=== PATIENT | female | born 1965 | race Caucasian/White ===

== ENCOUNTER 2017-01-20 13:58 | Day surgery (SDC) | payer OTHER ==
[~2017-01-20] VITALS: Ht 152.4 cm; Wt 82.8 kg
[~2017-01-20 13:58] MED LIST: NAPR-688; TIZA4CAP; TRAM-40; VICES
[2017-01-20] MEDS ORDERED: vitamin d (14:27)
[2017-01-20] MEDS ORDERED: gabapentin (14:27)
[2017-01-20] MEDS ORDERED: diclofen (14:27)
[2017-01-20] MEDS ORDERED: metoprolol (14:27)
[2017-01-20 14:29] VITALS: Ht 152.4 cm; Wt 82.8 kg
[2017-01-20] MEDS ORDERED: PROPOFOL 20 ML ONE (14:42)
[2017-01-20] MEDS ORDERED: FENTAnyl 50 MCG/ML VIAL ONE ×2 (14:42→16:45)
[2017-01-20 14:46] VITALS: BP 113/74; PULSE 88; RESP 18
--- NOTE | 2017-01-20 15:28 | OPPN ---
Date/Time of Note Date/Time of Note DATE: 01/20/17 TIME: 15:23 Proc Note GI Procedure Date 01/20/17 Pre-procedure Diagnosis * Colorectal cancer screening Post-procedure Diagnosis Assessment: * Mild sigmoid diverticulosis. * Moderate-sized internal hemorrhoids. * Otherwise normal colonoscopy to cecum. Plan: * High-fiber diet * Annual Hemoccult testing * Screening colonoscopy in 10 years Surgeon ALBINA SIMS MD Ultrasonic Tester none Anesthesia Type: MAC Anesthesiologist: VANESSA GRANDA MD Tourniquet Time none EBL none Transfusion required none Grafts/Implants none Tubes/Drains none Complication(s) none Pt Condition post procedure: stable Disposition: home Indications: screening/surveillance Procedure Description After informed consent, with the patient/relatives understanding the procedure, its indications and potential risks and complications, including but not limited to: Allergic reaction, bleeding, perforation, infection, and after all pertinent questions were answered to the patient's satisfaction, the patient/ relatives signed the witnessed informed consent. Following this, premedication was administered slowly IV push under careful cardiovascular and respiratory monitoring with pulse OXIMETRY, automatic blood pressure, and regulatory affairs director. Once the sedative effect was achieved, the patient was placed in the left lateral decubitus position, digital rectal examination was performed. The colonoscope was then introduced and advanced under visual control throughout all segments of the colon including: the rectum, sigmoid, descending colon, splenic flexure, transverse colon, hepatic flexure, ascending colon and finally reaching the cecum which was clearly identified by transillumination, finger indentation and the ileocecal valve. Careful examination of the mucosa of the lower gastrointestinal tract both on insertion as well as withdrawal of the instrument disclosed the following findings: PREPARATION QUALITY: [Adequate], RECTAL EXAM: The anorectal area was visualized examined and digital rectal examination performed with the following findings: No evidence of perirectal disease, no masses. COLONIC MUCOSA: The mucosa of all segments of the colon was carefully examined and showed the following findings: There is mild diverticulosis of several colon. Moderate-sized internal hemorrhoids are present. Otherwise the examined mucosa appears within normal limits. There is no evidence of inflammatory changes, polyps or other neoplasms , vascular malformation, or any other abnormality. The instrument was then withdrawn, the patient tolerated the procedure well and was transferred out of the Endoscopy Suite awake and in good condition to continue recovery under observation. Copies To: CC: ALBINA SIMS MD, MORDO MD Jan 20, 2017 15:28
[2017-01-20 15:50] VITALS: BP 139/65; RESP 14
[2017-01-20] MEDS ORDERED: MIDAZOLAM 1 MG/ML 2 ML INJ ONE ×2 (16:45)
== END 2017-01-20 16:55 | disposition home or self-care (01) ==
LOC: GIL 13:58
PROVIDERS: ATTEND Internal Medicine Gastroenterology
DX: Z12.11 Encounter for screening for malignant neoplasm of colon (principal); K64.8 Other hemorrhoids; I10 Essential (primary) hypertension; E78.5 Hyperlipidemia, unspecified
CPT/HCPCS: 45378; 84703; J2250; J3010; Z7610

== ENCOUNTER 2018-10-11 08:21 | Observation (INO) | payer OTHER ==
[~2018-10-11] VITALS: Ht 153.7 cm; Wt 86.5 kg
[2018-10-11] VITALS (21 sets, daily range): BP systolic 109–154; BP diastolic 59–76; PULSE 86–105; RESP 11–20; Ht 153.7 cm; Wt 86.5 kg
[~2018-10-11 08:21] MED LIST changes: -NAPR-688; +SEVOFLURANE 15 MIN ONE; -TIZA4CAP; -TRAM-40; +TRAM50TA; -VICES; +diclofen; +gabapentin; +metoprolol; +vitamin d
[2018-10-11] MEDS ORDERED: ACET1TAB40 PO (12:28)
[2018-10-11] MEDS ORDERED: DIC20 PO (12:30)
[2018-10-11] MEDS ORDERED: OMEP40CA6 PO (12:30)
[2018-10-11] MEDS ORDERED: GABA300C16 PO (12:31)
[2018-10-11] MEDS ORDERED: GABA100C14 PO (12:31)
[2018-10-11] MEDS ORDERED: METO-448 PO (12:32)
[2018-10-11] MEDS ORDERED: CELE200C PO (12:33)
[2018-10-11] MEDS ORDERED: GLUC500T11 PO (12:33)
[2018-10-11] MEDS ORDERED: CALC500T91 PO (12:34)
[2018-10-11] MEDS ORDERED: CITA20TA11 PO (12:35)
[2018-10-11] MEDS ORDERED: NORT10CA2 PO (12:35)
[2018-10-11] MEDS: LACTATED RINGER'S 1,000 ML IV SCH (12:44)
--- NOTE | 2018-10-11 14:01 | PREAC ---
Date/Time of Note Date/Time of Note DATE: 10/11/18 TIME: 14:00 Anesthesia Eval and Record Evaluation Time Pre-Procedure Interview DATE: 10/11/18 TIME: 14:00 Age 53 Sex female NPO: 8 hrs Preoperative diagnosis lumbar stenosis Planned procedure lumbar 4-lumbar 5 minimally invasive lumbar laminectomy microdiscectomy Past Medical History Past Medical History: Includes Cardio: HTN, Dyslipidemia GI: Obesity Surgery & Anesthesia Issues No known issue Meds Anticoagulation: No Beta Faith within 24 hr: Yes Reason Beta Faith not given: Bradycarida, Hypotension Reported Medications Nortriptyline Hcl* (Nortriptyline Hcl*) 10 Mg Capsule, 10 MG PO HS, CAP 10/11/18 Citalopram Hydrobromide* (Celexa*) 20 Mg Tablet, 20 MG PO DAILY, #30 TAB 10/11/18 Calcium Carbonate ([id number]) 500 Mg Tablet, 500 MG PO DAILY, TAB 10/11/18 Celecoxib* (Celebrex*) 200 Mg Capsule, 200 MG PO BID, CAP 10/11/18 Glucosamine Hcl (Glucosamine Hcl) 500 Mg Tablet, 500 MG PO TID, TAB 10/11/18 Metoprolol Tartrate* (Lopressor*) 25 Mg Tab, 25 MG PO BID, #60 TAB 10/11/18 Gabapentin* (Gabapentin*) 300 Mg Capsule, 300 MG PO TID, #90 CAP 10/11/18 Gabapentin* (Gabapentin*) 100 Mg Capsule, 100 MG PO QHS, #90 CAP 10/11/18 Omeprazole* (Omeprazole*) 40 Mg Capsule.dr, 40 MG PO DAILY, #30 CAP 10/11/18 Dicyclomine HCl (Dicyclomine HCl) 20 Mg Tablet, 20 MG PO QID 10/11/18 Acetaminophen with Codeine (Acetaminophen-Cod #3 Tablet) 1 Each Tablet, 1 TAB PO BID PRN for PAIN, #7 TAB 10/11/18 Discontinued Reported Medications [diclofen] No Conflict Check 01/20/17 [gabapentin] No Conflict Check 01/20/17 [vitamin d] No Conflict Check 01/20/17 [metoprolol] No Conflict Check 01/20/17 Tramadol Hcl* (Ultram*) 50 Mg Tablet 10/16/11 Current Medications Lactated Ringer's 1,000 ml @ 30 mls/hr Q24H IV Last administered on 10/11/18at 12:44; Admin Dose 30 MLS/HR; Start 10/11/18 at 12:30 Meds reviewed: Yes Allergies Coded Allergies: No Known Allergies (Verified Allergy, Unknown, 10/11/18) Allergies Reviewed: Yes Labs/Studies Labs Reviewed: Reviewed by anesthesiologist Result Diagram: 10/11/18 1220 10/11/18 1220 Laboratory Tests 10/11/18 12:20 test: Negative Studies: ECG, CXR, Stress test, 2D Echo Pre-procedure Exam Last vitals Vital Signs Date Temp Pulse Resp B/P (MAP) Pulse Ox O2 O2 Flow FiO2 Time Delivery Rate 10/11/18 96.7 86 16 121/76 95 Room Air 12:52 (91) Airway: Adequate mouth opening, Adequate thyromental dist Mallampati: Mallampati II Teeth: Abnormal (upper dentures) Lung: Normal Heart: Normal ASA Physical Status ASA physical status: 2 Emergency: None Planned Anesthetic General/MAC: ETT Planned Pain Management Parenteral pain med Pre-operative Attestations Prior to commencing anesthesia and surgery, the patient was re-evaluated, there was verification of: *The patient's identity *The results of appropriate recent lab work and preoperative vital signs *The above evaluation not changing prior to induction *Anesthetic plan, risk benefits, alternative and complications discussed with patient/family; questions answered; patient/family understands, accepts and wishes to proceed. Block Cuber used EDY ZABALA MD Oct 11, 2018 14:01
[2018-10-11] MEDS ORDERED: GELATIN SIZE 100 SPONGE ONE ×2 (14:14→16:15)
[2018-10-11] MEDS ORDERED: BUPIVACAINE 0.5%/EPI (SDV) 30 ML INJ ONE (14:14)
[2018-10-11] MEDS ORDERED: THROMBIN 5000 UNIT VIAL ONE ×2 (14:14→16:15)
[2018-10-11] MEDS ORDERED: POLYMYXIN/BACITRACIN 1L IRRIG ONE (14:14)
[2018-10-11] MEDS ORDERED: LIDOCAINE 1.5%/EPI MPF (SDV) 30 ML VIAL ONE (14:14)
--- NOTE | 2018-10-11 14:31 | HPN ---
Date/Time of Note Date/Time of Note DATE: 10/11/18 TIME: 14:30 Interval H&P Admission Note Pt. seen H&P reviewed: Systems changes noted below Continued intractable LBP and left LE pain, numbness and weakness. The risks and benefits of the above operation were again explained to the patient and her with the help of bilingual nurse. AKHIL WEAVER MD Oct 11, 2018 14:31
[2018-10-11] MEDS ORDERED: MIDAZOLAM 1 MG/ML 2 ML INJ ONE (14:52)
[2018-10-11] MEDS ORDERED: ROCURONIUM 50 MG INJ ONE (15:00)
[2018-10-11] MEDS ORDERED: SUCCINYLCHOLINE CHLORIDE 100 MG/5 ML SYG IV ONE (15:00)
[2018-10-11] MEDS ORDERED: ONDANSETRON 4 MG INJ ONE (15:00)
[2018-10-11] MEDS ORDERED: DEXAMETHASONE 4 MG/ML 5 ML INJ ONE (15:00)
[2018-10-11] MEDS ORDERED: CEFAZOLIN 1 GM INJ ONE (15:00)
[2018-10-11] MEDS ORDERED: FAMOTIDINE 20 MG INJ ONE (15:00)
[2018-10-11] MEDS ORDERED: LIDOCAINE 2% (SDV) 5 ML INJ ONE (15:00)
[2018-10-11] MEDS ORDERED: PROPOFOL 20 ML ONE (15:00)
[2018-10-11] MEDS ORDERED: METHYLPREDNISOLONE ACET 80 MG/ML 1 ML ONE (16:54)
[2018-10-11] MEDS ORDERED: GLYCOPYRROLATE 0.4 MG INJ ONE (17:00)
[2018-10-11] MEDS ORDERED: NEOSTIGMINE 3 MG/3 ML SYRINGE ONE (17:00)
--- NOTE | 2018-10-11 17:24 | SIPON ---
Date/Time of Note Date/Time of Note DATE: 10/11/18 TIME: 17:21 Operative Report Preoperative Diagnosis Right L4-5 lateral recess stenosis Right L4-5 facet hypertrophy Right L4-5 HNP Postoperative Diagnosis Right L4-5 lateral recess stenosis Right L4-5 facet hypertrophy Right L4-5 HNP Operation/Procedure Performed MIS right L4 hemilaminectomy, right L4-5 medial facetectomy, foraminotomy, microdiscectomy Surgeon see signature line data entry assistant None Anesthesia: general Estimated blood loss: 10 - 50 ml's (25cc) Transfusion Required none Specimen None Grafts/Implants none Complications none AKHIL WEAVER MD Oct 11, 2018 17:24
[2018-10-11] MEDS ORDERED: ONDANSETRON 4 MG INJ IV PRN ×3 (17:30→18:30)
[2018-10-11] MEDS: CITALOPRAM 20 MG TAB PO SCH (17:30)
[2018-10-11] MEDS ORDERED: BISACODYL 10 MG SUPP PR PRN (17:30)
[2018-10-11] MEDS ORDERED: NALOXONE (0.4 MG/ML) INJ IV PRN (17:30)
[2018-10-11] MEDS ORDERED: ACETAMINOPHEN/CODEINE #3 TAB PO PRN (17:30)
--- NOTE | 2018-10-11 17:55 | PAC ---
Date/Time of Note Date/Time of Note DATE: 10/11/18 TIME: 17:54 Post-Anesthesia Notes Post-Anesthesia Note Last documented vital signs Vital Signs Date Temp Pulse Resp B/P (MAP) Pulse Ox O2 O2 Flow FiO2 Time Delivery Rate 10/11/18 96.7 86 16 121/76 95 Room Air 12:52 (91) Activity: WNL Respiratory function: WNL Cardiovascular function: WNL Mental status: Baseline Pain reasonably controlled: Yes Hydration appropriate: Yes Nausea/Vomiting absent: Yes Comments BP:120/68 HR: 98 SaO2: 97% RR: 15 T: 98.9 EDY ZABALA MD Oct 11, 2018 17:55
[2018-10-11] MEDS ORDERED: HYDROmorphONE 1 MG/5 ML IV SYRINGE IV ONE (18:20)
[2018-10-11] MEDS: CEFAZOLIN 1 GM/50 ML (PMX) 50 ML IVPB SCH (18:21)
[2018-10-11] MEDS ORDERED: FENTAnyl 50 MCG/ML VIAL IV PRN ×3 (18:30)
[2018-10-11] MEDS ORDERED: HYDROmorphONE 1 MG/5 ML IV SYRINGE IV PRN ×6 (18:30)
[2018-10-11] MEDS ORDERED: MEPERIDINE 25 MG INJ IV PRN (18:30)
[2018-10-11] MEDS ORDERED: DIPHENHYDRAMINE 50 MG INJ IV PRN (18:30)
[2018-10-11] MEDS ORDERED: PROCHLORPERAZINE 10 MG INJ IV PRN (18:30)
[2018-10-11] MEDS ORDERED: OXYCODONE/ACETAMINOPHEN (5/325) TAB PO PRN (18:30)
--- NOTE | 2018-10-11 18:36 | CONS ---
Assessment/Plan Assessment/Plan Hospital Course (Demo Recall) 53 yo female with pre-DM who is POD0 for laminectomy - Kaleb-operative management per Dr Cerna - Pain control - DVT ppx with SCDs - Diet as tolerated Consultation Date/Type/Reason Admit Date/Time Oct 11, 2018 at 11:37 Date/Time of Note DATE: 10/11/18 TIME: 18:34 Hx of Present Illness 53 yo female without significant PMH who is POD0 for laminectomy We have been asked to provide kaleb-operative medical management Patient currently in PACU. Only complaint is of post operative pain. She says she has pre-DM. She does not take any medications routinely Constitutional: no complaints, improved Eyes: no complaints ENT: no complaints Respiratory: no complaints Cardiovascular: no complaints Gastrointestinal: no complaints Genitourinary: no complaints Musculoskeletal: no complaints Skin: no complaints Neurologic: no complaints Endocrine: no complaints Lymphatic: no complaints Psychological: no complaints, nl mood/affect Immunologic: no complaints Past Medical History Medical History: no pertinent history Home Meds Reported Medications Nortriptyline Hcl* (Nortriptyline Hcl*) 10 Mg Capsule, 10 MG PO HS, CAP 10/11/18 Citalopram Hydrobromide* (Celexa*) 20 Mg Tablet, 20 MG PO DAILY, #30 TAB 10/11/18 Calcium Carbonate ([id number]) 500 Mg Tablet, 500 MG PO DAILY, TAB 10/11/18 Celecoxib* (Celebrex*) 200 Mg Capsule, 200 MG PO BID, CAP 10/11/18 Glucosamine Hcl (Glucosamine Hcl) 500 Mg Tablet, 500 MG PO TID, TAB 10/11/18 Metoprolol Tartrate* (Lopressor*) 25 Mg Tab, 25 MG PO BID, #60 TAB 10/11/18 Gabapentin* (Gabapentin*) 300 Mg Capsule, 300 MG PO TID, #90 CAP 10/11/18 Gabapentin* (Gabapentin*) 100 Mg Capsule, 100 MG PO QHS, #90 CAP 10/11/18 Omeprazole* (Omeprazole*) 40 Mg Capsule., 40 MG PO DAILY, #30 CAP 10/11/18 Dicyclomine HCl (Dicyclomine HCl) 20 Mg Tablet, 20 MG PO QID 10/11/18 Acetaminophen with Codeine (Acetaminophen-Cod #3 Tablet) 1 Each Tablet, 1 TAB PO BID PRN for PAIN, #7 TAB 10/11/18 Discontinued Reported Medications [diclofen] No Conflict Check 01/20/17 [gabapentin] No Conflict Check 01/20/17 [vitamin d] No Conflict Check 01/20/17 [metoprolol] No Conflict Check 01/20/17 Tramadol Hcl* (Ultram*) 50 Mg Tablet 10/16/11 Medications Current Medications Lactated Ringer's 1,000 ml @ 30 mls/hr Q24H IV Last administered on 10/11/18at 12:44; Admin Dose 30 MLS/HR; Start 10/11/18 at 12:30 Acetaminophen/ Codeine Phosphate (Tylenol No.3) 1 tab BID PRN PO PAIN; Start 10/11/18 at 17:30 Calcium Carbonate (Oyster Shell Calcium) 1.25 gm DAILY PO ; Start 10/12/18 at 09:00 Celecoxib (Celebrex) 200 mg BID PO ; Start 10/11/18 at 21:00 Citalopram Hydrobromide (Celexa) 20 mg DAILY PO ; Start 10/11/18 at 17:30 Gabapentin (Neurontin) 100 mg QHS PO ; Start 10/11/18 at 21:00 Gabapentin (Neurontin) 300 mg TID PO ; Start 10/11/18 at 21:00 Metoprolol Tartrate (Lopressor) 25 mg BID PO ; Start 10/11/18 at 21:00 Nortriptyline HCl (Aventyl) 10 mg HS PO ; Start 10/11/18 at 21:00 Dicyclomine HCl (Bentyl) 20 mg QID PO ; Start 10/11/18 at 21:00 Pantoprazole (Protonix Tab) 40 mg DAILY@06 PO ; Start 10/12/18 at 06:00 Potassium Chloride/Sodium Chloride 1,000 ml @ 100 mls/hr Q10H IV ; Start 10/11/18 at 17:07 Cefazolin Sodium 50 ml @ 100 mls/hr Q8H IVPB Last administered on 10/11/18at 18:21; Admin Dose 100 MLS/HR; Start 10/11/18 at 17:30; Stop 10/12/18 at 09:59 Ondansetron HCl (Zofran Inj) 4 mg Q6H PRN IV NAUSEA/VOMITING Last administered on 10/11/18at 18:21; Admin Dose 4 MG; Start 10/11/18 at 17:30 Bisacodyl (Dulcolax Supp) 10 mg DAILY PRN [place] .CONSTIPATION; Start 10/11/18 at 17:30 Docusate Sodium (Colace) 100 mg BID PO ; Start 10/11/18 at 21:00 Naloxone HCl (Narcan) 0.2 mg Q2M PRN IV .RR 8 BREATHS/MIN OR LESS; Start 10/11/18 at 17:30 Hydromorphone HCl (Dilaudid) 0.2 mg PACU PRN IV MILD PAIN 1-3; Start 10/11/18 at 18:30; Stop 10/11/18 at 23:00 Hydromorphone HCl (Dilaudid) 0.4 mg PACU PRN IV MOD PAIN 4-6; Start 10/11/18 at 18:30; Stop 10/11/18 at 23:00 Hydromorphone HCl (Dilaudid) 0.6 mg PACU PRN IV SEVERE PAIN 7-10; Start 10/11/18 at 18:30; Stop 10/11/18 at 23:00 Fentanyl (Sublimaze) 25 mcg PACU ORDER PRN IV MILD PAIN 1-3; Start 10/11/18 at 18:30; Stop 10/11/18 at 23:00 Fentanyl (Sublimaze) 50 mcg PACU ORDER PRN IV MOD PAIN 4-6; Start 10/11/18 at 18:30; Stop 10/11/18 at 23:00 Fentanyl (Sublimaze) 75 mcg PACU ORDER PRN IV SEVERE PAIN 7-10; Start 10/11/18 at 18:30; Stop 10/11/18 at 23:00 Oxycodone/ Acetaminophen (Percocet (5/ 325)) 1 tab PACU ORDER PRN PO .PAIN 1-5; Start 10/11/18 at 18:30; Stop 10/11/18 at 23:00 Ondansetron HCl (Zofran Inj) 4 mg PACU ORDER PRN IV NAUSEA/VOMITING; Start 10/11/18 at 18:30; Stop 10/11/18 at 23:00 Prochlorperazine (Compazine Inj) 5 mg PACU ORDER PRN IV NAUSEA/VOMITING; Start 10/11/18 at 18:30; Stop 10/11/18 at 23:00 Meperidine HCl (Demerol) 25 mg PACU ORDER PRN IV .RIGORS; Start 10/11/18 at 18:30; Stop 10/11/18 at 23:00 Diphenhydramine HCl (Benadryl) 25 mg PACU ORDER PRN IV .PRURITUS; Start 10/11/18 at 18:30; Stop 10/11/18 at 23:00 Hydromorphone HCl (Dilaudid) 0.2 mg PACU PRN IV MILD PAIN 1-3; Start 10/11/18 at 18:30; Status UNV Hydromorphone HCl (Dilaudid) 0.4 mg PACU PRN IV MOD PAIN 4-6; Start 10/11/18 at 18:30; Status UNV Hydromorphone HCl (Dilaudid) 0.6 mg PACU PRN IV SEVERE PAIN 7-10; Start 10/11/18 at 18:30; Status UNV Ondansetron HCl (Zofran Inj) 4 mg PACU ORDER PRN IV NAUSEA/VOMITING; Start at 18:30; Status UNV Allergies: Coded Allergies: No Known Allergies (Verified Allergy, Unknown, 10/11/18) Past Surgical History Past Surgical Hx: no surgical history Family History Significant Family History: no pertinent family hx Social History Alcohol Use: none Smoking Status: Never smoker Exam/Review of Systems Exam Vitals Vital Signs Date Temp Pulse Resp B/P (MAP) Pulse Ox O2 O2 Flow FiO2 Time Delivery Rate 10/11/18 98 17 127/74 97 Nasal 17:56 (91) Cannula 10/11/18 2.0 17:49 10/11/18 98.9 17:36 Constitutional: alert, oriented, well developed Psych: no complaints, nl mood/affect Head: normocephalic, atraumatic Eyes: nl conjunctiva, EOMI, nl lids, nl sclera, PERRL ENMT: nl external ears & nose, nl lips & teeth, nl nasal mucosa & septum Neck: supple, non-tender Respiratory: clear to auscultation, normal air movement Cardiovascular: regular rate and rhythm, nl pulses Gastrointestinal: soft, nl liver, spleen, non-tender Musculoskeletal: nl extremities to inspection, nl gait and stance Extremities: normal pulses Neurological: ALODIZE MACHINE HELPER II-XII intact, nl mental status, nl speech, nl strength Skin: nl turgor; No rash or lesions Lymph: nl lymph nodes Results Result Diagram: 10/11/18 1220 10/11/18 1220 Results 24hrs Laboratory Tests Test 10/11/18 12:20 White Blood Count 6.7 Red Blood Count 4.55 Hemoglobin 13.4 Hematocrit 40.0 Mean Corpuscular Volume 87.9 Mean Corpuscular Hemoglobin 29.5 Mean Corpuscular Hemoglobin Concent 33.5 Red Cell Distribution Width 11.7 Platelet Count 261 Mean Platelet Volume 9.3 Immature Granulocytes % 0.400 Neutrophils % 55.1 Lymphocytes % 31.9 Monocytes % 8.4 Eosinophils % 3.6 Basophils % 0.6 Nucleated Red Blood Cells % 0.0 Immature Granulocytes # 0.030 Neutrophils # 3.7 Lymphocytes # 2.1 Monocytes # 0.6 Eosinophils # 0.2 Basophils # 0.0 Nucleated Red Blood Cells # 0.0 Prothrombin Time 12.7 Prothrombin Time Ratio 1.0 INR International Normalized Ratio 0.94 Activated Partial Thromboplast Time 27.5 Sodium Level 142 Potassium Level 4.1 Chloride Level 108 Carbon Dioxide Level 28 Anion Gap 6 Blood Urea Nitrogen 8 Creatinine 0.34 L Est Glomerular Filtrat Rate mL/min > 60 Glucose Level 79 Calcium Level 9.3 Total Bilirubin 0.4 Direct Bilirubin 0.00 Indirect Bilirubin 0.4 Aspartate Amino Transf (AST/SGOT) 19 Alanine Aminotransferase (ALT/SGPT) 21 Alkaline Phosphatase 87 Total Protein 7.6 Albumin 4.2 Globulin 3.40 H Albumin/Globulin Ratio 1.23 Medications Medication Current Medications Lactated Ringer's 1,000 ml @ 30 mls/hr Q24H IV Last administered on 10/11/18at 12:44; Admin Dose 30 MLS/HR; Start 10/11/18 at 12:30 Acetaminophen/ Codeine Phosphate (Tylenol No.3) 1 tab BID PRN PO PAIN; Start 10/11/18 at 17:30 Calcium Carbonate (Oyster Shell Calcium) 1.25 gm DAILY PO ; Start 10/12/18 at 09:00 Celecoxib (Celebrex) 200 mg BID PO ; Start 10/11/18 at 21:00 Citalopram Hydrobromide (Celexa) 20 mg DAILY PO ; Start 10/11/18 at 17:30 Gabapentin (Neurontin) 100 mg QHS PO ; Start 10/11/18 at 21:00 Gabapentin (Neurontin) 300 mg TID PO ; Start 10/11/18 at 21:00 Metoprolol Tartrate (Lopressor) 25 mg BID PO ; Start 10/11/18 at 21:00 Nortriptyline HCl (Aventyl) 10 mg HS PO ; Start 10/11/18 at 21:00 Dicyclomine HCl (Bentyl) 20 mg QID PO ; Start 10/11/18 at 21:00 Pantoprazole (Protonix Tab) 40 mg DAILY@06 PO ; Start 10/12/18 at 06:00 Potassium Chloride/Sodium Chloride 1,000 ml @ 100 mls/hr Q10H IV ; Start 10/11/18 at 17:07 Cefazolin Sodium 50 ml @ 100 mls/hr Q8H IVPB Last administered on 10/11/18at 18:21; Admin Dose 100 MLS/HR; Start 10/11/18 at 17:30; Stop 10/12/18 at 09:59 Ondansetron HCl (Zofran Inj) 4 mg Q6H PRN IV NAUSEA/VOMITING Last administered on 10/11/18at 18:21; Admin Dose 4 MG; Start 10/11/18 at 17:30 Bisacodyl (Dulcolax Supp) 10 mg DAILY PRN [place] .CONSTIPATION; Start 10/11/18 at 17:30 Docusate Sodium (Colace) 100 mg BID PO ; Start 10/11/18 at 21:00 Naloxone HCl (Narcan) 0.2 mg Q2M PRN IV .RR 8 BREATHS/MIN OR LESS; Start 10/11/18 at 17:30 Hydromorphone HCl (Dilaudid) 0.2 mg PACU PRN IV MILD PAIN 1-3; Start 10/11/18 at 18:30; Stop 10/11/18 at 23:00 Hydromorphone HCl (Dilaudid) 0.4 mg PACU PRN IV MOD PAIN 4-6; Start 10/11/18 at 18:30; Stop 10/11/18 at 23:00 Hydromorphone HCl (Dilaudid) 0.6 mg PACU PRN IV SEVERE PAIN 7-10; Start 10/11/18 at 18:30; Stop 10/11/18 at 23:00 Fentanyl (Sublimaze) 25 mcg PACU ORDER PRN IV MILD PAIN 1-3; Start 10/11/18 at 18:30; Stop 10/11/18 at 23:00 Fentanyl (Sublimaze) 50 mcg PACU ORDER PRN IV MOD PAIN 4-6; Start 10/11/18 at 18:30; Stop 10/11/18 at 23:00 Fentanyl (Sublimaze) 75 mcg PACU ORDER PRN IV SEVERE PAIN 7-10; Start 10/11/18 at 18:30; Stop 10/11/18 at 23:00 Oxycodone/ Acetaminophen (Percocet (5/ 325)) 1 tab PACU ORDER PRN PO .PAIN 1-5; Start 10/11/18 at 18:30; Stop 10/11/18 at 23:00 Ondansetron HCl (Zofran Inj) 4 mg PACU ORDER PRN IV NAUSEA/VOMITING; Start 10/11/18 at 18:30; Stop 10/11/18 at 23:00 Prochlorperazine (Compazine Inj) 5 mg PACU ORDER PRN IV NAUSEA/VOMITING; Start 10/11/18 at 18:30; Stop 10/11/18 at 23:00 Meperidine HCl (Demerol) 25 mg PACU ORDER PRN IV .RIGORS; Start 10/11/18 at 18:30; Stop 10/11/18 at 23:00 Diphenhydramine HCl (Benadryl) 25 mg PACU ORDER PRN IV .PRURITUS; Start 10/11/18 at 18:30; Stop 10/11/18 at 23:00 Hydromorphone HCl (Dilaudid) 0.2 mg PACU PRN IV MILD PAIN 1-3; Start 10/11/18 at 18:30; Status UNV Hydromorphone HCl (Dilaudid) 0.4 mg PACU PRN IV MOD PAIN 4-6; Start 10/11/18 at 18:30; Status UNV Hydromorphone HCl (Dilaudid) 0.6 mg PACU PRN IV SEVERE PAIN 7-10; Start 10/11/18 at 18:30; Status UNV Ondansetron HCl (Zofran Inj) 4 mg PACU ORDER PRN IV NAUSEA/VOMITING; Start 10/11/18 at 18:30; Status DARSHAN SALAZAR MD Oct 11, 2018 18:36
[2018-10-11] MEDS: HYDROCODONE/APAP (5/325) TAB PO PRN (20:43)
[2018-10-11] MEDS: 1/2 NS + KCL 20 MEQ 1,000 ML IV SCH (20:46)
[2018-10-11] MEDS ORDERED: GABAPENTIN 100 MG CAP PO SCH (21:00)
[2018-10-11] MEDS ORDERED: NORTRIPTYLINE 10 MG CAP PO SCH (21:00)
[2018-10-11] MEDS ORDERED: GLUCOSAMINE HCL 500 MG PO SCH (21:00)
[2018-10-11] MEDS: DOCUSATE SODIUM 100 MG CAP PO SCH (21:39)
[2018-10-11] MEDS: CELECOXIB 200 MG CAP PO SCH (21:39)
[2018-10-11] MEDS: GABAPENTIN 300 MG CAP PO SCH (21:39)
[2018-10-11] MEDS: DICYCLOMINE 10 MG CAP PO SCH (21:39)
[2018-10-11] MEDS: METOPROLOL 25 MG TAB PO SCH (21:40)
--- NOTE | 2018-10-11 22:51 | OPR ---
Date/Time of Note Date/Time of Note DATE: 10/11/18 TIME: 22:51 Operative Report Procedure Date: Oct 11, 2018 Preoperative Diagnosis Please see below. Postoperative Diagnosis Please see below. Operation/Procedure Performed Please see below. Surgeon see signature line Foxing Closer None Anesthesia Type: general Estimated Blood Loss: 10 - 50 ml's Transfusion none Specimen None Grafts/Implants none Tubes/Drains None Complications none Pt Condition Post Procedure: stable Disposition: PACU Indications Please see below. Procedure Description Date of operation: 10/11/2018 Operating surgeon: Akhil Weaver M.D. Preoperative diagnosis: 1. 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 Left L4-5 facet hypertrophy and herniated nucleus pulposus Post operative diagnosis: 1. 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 Left L4-5 facet hypertrophy and herniated nucleus pulposus Procedure(s) performed: 1. Minimally invasive left L4 decompressive hemilaminectomy 2. Minimally invasive left L4-5 medial facetectomy and foraminotomies and microdiscectomy 3. Intraoperative microscope with microdissection 4. Intraoperative fluoroscopy with professional interpretation 5. Intraoperative neurophysiologic monitoring including SSEP, MEP and EMG Indication for procedure: This is a 53-year-old female with intractable radiating left lower extremity pain, numbness and weakness that is at least in part in the left L5 distribution. The patient also has axial low back pain but to a lesser degree in her left lower extremity symptomatology. The patient has already undergone conservative management without significant improvement of her symptomatology. She was found to have the above in its findings. The risks and benefits of the above operation were again explained in detail to the patient and her at bedside with the help of a bilingual preop nurse. The risks include bleeding, infection, weakness, numbness, paralysis, bowel or bladder dysfunction, cerebrospinal fluid leak, injury to surrounding tissues, failure of improvement of symptoms or worsening of her symptoms, need for further surgeries including redo laminectomy/decompression/redo microdiscectomy as well as need for extension of the decompression and instrumented fusion as well as those risks associated with surgery and general anesthesia including deep venous thrombosis, pulmonary embolism, heart attack, stroke, pneumonia and . The patient and her fully understood the above discussion and wished to proceed with the above surgery. Description of operative procedure: The patient was brought to the operating room and after general anesthesia was obtained, she was placed prone on top of the Presley frame. Her arms were abducted less than 90 and placed in superman position. The Presley frame was slightly raised. All pressure points were noted and padded appropriately. The midline lumbar spine was marked. A vertical paraspinal lumbar line was marked approximately 1-1/2 cm to the left of midline. After the skin was prepped and draped under standard sterile fashion, the spinal needle was inserted along the left paraspinal lumbar line under direct lateral fluoroscopy and the left L4-5 disc space level was located. A small vertical incision centered at the entry point of the spinal needle was marked along the left paraspinal lumbar line. The skin was then incised down to the level of the fascia. Serial tube dilators were inserted and the posterior soft tissue was dissected off the posterior bony elements. The final working tube was inserted, medialized and placed parallel to the L4-5 disc space under direct lateral fluoroscopy, docked at the junction of the left L4 hemilamina left L4-5 medial facet. The tube was then locked to the table in that position. The operating microscope was brought into the field. The posterior soft tissue was then denuded off the left L4 hemilamina and left L4-5 medial facet. Using a combination of the high-speed drill, Kerrison rongeurs and curettes, we then performed a decompressive left L4 hemilaminectomy and left L4-5 medial facetectomy and foraminotomy. The ligamentum flavum was removed. The thecal sac and the traversing left L5 nerve root were exposed and completely decompressed proximally and distally. The thecal sac and the traversing left L5 nerve root were then gently medially retracted. The bulging annulus and the disc herniation at L4-5 were noted. The annulus was then opened in a cruciate fashion. Several pieces of disc fragment were removed. The down pushing curette was used to free up the remaining part of the disc protrusion. A nerve hook was then used to confirm that the ventral epidural space was completely decompressed. No remaining disc herniation was noted. The wound was copiously irrigated with antibiotic solution. Complete hemostasis was obtained. 80 mg of Depo-Medrol was topically applied to the exposed dura and nerve root. The tube was removed. The muscle and fascia layers were reapproximated with interrupted sutures. The dermal layer was reapproximated with interrupted sutures. The skin was reapproximated with Dermabond. A sterile dressing was placed on top of the incision site. The patient was placed supine on the hospital bed. She was then woken up, extubated and transported to the recovery room in stable condition. The intraoperative neurophysiologic signals were stable throughout the procedure. The patient was awake and alert and moving her upper and lower extremities per her preoperative baseline in the recovery room. The patient wished to stay overnight for observation with the plan to discharge her the next day. Estimated blood loss: 25 cc Blood products administered: None Packs/drains: None Type of anesthesia: General Incision: Left paraspinal lumbar Skin closure: Dermabond Wound classification: Clean Specimen removed: None Patient's condition: Stable Prognosis: Good AKHIL WEAVER MD Oct 11, 2018 22:51
[2018-10-12 00:05] VITALS: BP 104/63; PULSE 90; RESP 18
[2018-10-12] MEDS: morphine 2 MG INJ IV PRN ×4 (00:25→13:52)
[2018-10-12] MEDS: CEFAZOLIN 1 GM/50 ML (PMX) 50 ML IVPB SCH ×2 (00:25→08:54)
[2018-10-12] MEDS: 1/2 NS + KCL 20 MEQ 1,000 ML IV SCH (05:29)
[2018-10-12] MEDS ORDERED: PANTOPRAZOLE (EC) 40 MG TAB PO SCH (06:00)
[2018-10-12 07:41] VITALS: BP 105/57; PULSE 94; RESP 18
[2018-10-12] MEDS: GABAPENTIN 300 MG CAP PO SCH ×2 (08:52→12:18)
[2018-10-12] MEDS: CELECOXIB 200 MG CAP PO SCH (08:52)
[2018-10-12] MEDS: DOCUSATE SODIUM 100 MG CAP PO SCH (08:53)
[2018-10-12] MEDS: DICYCLOMINE 10 MG CAP PO SCH ×2 (08:53→12:18)
[2018-10-12] MEDS: CITALOPRAM 20 MG TAB PO SCH (08:53)
[2018-10-12] MEDS: HYDROCODONE/APAP (5/325) TAB PO PRN (08:53)
[2018-10-12] MEDS: METOPROLOL 25 MG TAB PO SCH (08:54)
[2018-10-12] MEDS ORDERED: CALCIUM CARBONATE 1.25 GM TAB PO SCH (09:00)
[2018-10-12] MEDS: LACTATED RINGER'S 1,000 ML IV SCH (11:38)
== END 2018-10-12 15:40 | disposition home or self-care (01) ==
LOC: INTOOBSV 11:37 → REC 11:37 → EDSTATUS 13:30 → MS1 19:05
PROVIDERS: ADMIT Neurological Surgery; ATTEND Neurological Surgery
DX: M48.061 Spinal stenosis, lumbar region without neurogenic claudication (principal); M51.26 Other intervertebral disc displacement, lumbar region
CPT/HCPCS: 63030; 72114; 80053; 85025; 85610; 85730; 97161; G0378; J0690; J1040; J1100; J1170; J2250; J2270; J2405; J2710; J3010; J3480; J7120; 99217